=== PATIENT | female | born 1995 | race Caucasian/White ===

== ENCOUNTER 2018-11-29 18:46 | Emergency (ER) | payer OTHER ==
[~2018-11-29] VITALS: Ht 157.5 cm; Wt 59.0 kg
[~2018-11-29 18:46] MED LIST: CEPH500 PO; MEDR150I IM; NAPR500 PO; SULTRIDS PO; Ultram50 MG PO
[2018-11-29] MEDS ORDERED: Depo-Subq104 MG/0.6 IM (19:38)
[2018-11-29] MEDS ORDERED: Ciprodex Otic7.5 ML RIGHTEAR (19:48)
== END 2018-11-29 20:11 | disposition home or self-care (01) ==
LOC: ER 18:46
DX: S09.21XA Traumatic rupture of right ear drum, initial encounter (principal); F17.290 Nicotine dependence, other tobacco product, uncomplicated; W22.8XXA Striking against or struck by other objects, initial encounter
CPT/HCPCS: 99282

== ENCOUNTER → 2019-01-10 | Outpatient (CLI) | payer OTHER ==
[~2019-01-10] MED LIST changes: +Ciprodex Otic7.5 ML RIGHTEAR; +Depo-Subq104 MG/0.6 IM
== END ==
LOC: LAB SHORT 15:40 → LAB 15:40
DX: N91.2 Amenorrhea, unspecified (principal)
CPT/HCPCS: 84702